=== PATIENT | male | born 1985 | race African-American/Black ===

== ENCOUNTER 2017-01-03 21:06 | Emergency (ER) | payer SELFPAY ==
[~2017-01-03] VITALS: Ht 182.9 cm; Wt 81.8 kg
[2017-01-03 21:11] VITALS: TEMP 98.6
[2017-01-03 21:40] LABS: HEMATOCRIT 40.3 % (42.0-52.0); MEAN CELL VOLUME 93 fl (80.0-100.0); MEAN CORPUSCULAR HEMOGLOBIN 32 pg (27.0-31.0); MEAN CORPUSCULAR HGB CONC 35 g/dl (33.0-37.0); MEAN PLATELET VOLUME 9.6 fl (7.4-10.4); PLATELET COUNT 269 K/mm3 (130-400); RED BLOOD COUNT 4.35 M/mm3 (4.20-5.60); REDCELL DISTRIBUTION WIDTH-CV 11.7 % (11.5-14.5); WHITE BLOOD COUNT 11.7 K/mm3 (4.8-10.8)
[2017-01-03 21:46] LABS: ADD PATHOLOGY DIFF REVIEW NO
[2017-01-03 21:52] LABS: ADJUSTED CALCIUM 9.5 mg/dL (8.4-10.2); ALBUMIN 4.3 gm/dL (3.5-5.0); BILIRUBIN,TOTAL 1.1 mg/dL (0.0-1.0); CALCIUM 9.7 mg/dL (8.4-10.2); CREATININE, serum 1.05 mg/dL (0.66-1.25); POTASSIUM 3.2 mmol/L (3.4-5.0); TOTAL PROTEIN 7.4 gm/dL (6.4-8.2)
[2017-01-03 21:57] LABS: BAND 2 % (0-10); EOSINOPHIL 3 % (0-4); NEUTROPHILS 39 % (42.0-75.2); PLATELET ESTIMATE NORMAL (NORMAL); TOTAL CELLS COUNTED 100
[2017-01-03 22:22] VITALS: BP 125/82; PULSE 93
== END 2017-01-03 22:43 | disposition home or self-care (01) ==
LOC: COL.ER 21:06
PROVIDERS: Emergency Medicine
DX: R00.2 Palpitations (principal); E87.6 Hypokalemia; R00.0 Tachycardia, unspecified

== ENCOUNTER 2018-04-05 10:15 | Emergency (ER) | payer SELFPAY ==
[~2018-04-05] VITALS: Ht 182.9 cm; Wt 78.6 kg
[2018-04-05 10:16] VITALS: BP 149/83; TEMP 98.7
[2018-04-05 10:27] LABS: COLLECTION METHOD CLEAN CATCH
[2018-04-05 10:43] LABS: MUCOUS Present /lpf; PH 6 (5-8); SQUAMOUS EPITHELIAL None Seen /hpf; URINE APPEARANCE Clear; URINE BACTERIA None Seen /hpf; URINE BILIRUBIN Negative (NEGATIVE); URINE BLOOD 3+ (NEGATIVE); URINE COLOR Yellow; URINE GLUCOSE Negative (NEGATIVE); URINE KETONE Negative (NEGATIVE); URINE LEUKOCYTE ESTERASE Negative (NEGATIVE); URINE NITRATE Negative (NEGATIVE); URINE PROTEIN(semi-quant) Negative (NEGATIVE); URINE RBC >50 /hpf; URINE UROBILINOGEN Negative (NEGATIVE)
[2018-04-05] MEDS ORDERED: CIPRO 500MG TA500 MG PO (11:23)
[2018-04-05 11:29] VITALS: PULSE 87
== END 2018-04-05 11:30 | disposition home or self-care (01) ==
LOC: COL.ER 10:15
PROVIDERS: Emergency Medicine
DX: R31.9 Hematuria, unspecified (principal); F17.210 Nicotine dependence, cigarettes, uncomplicated
CPT/HCPCS: J0696

== ENCOUNTER 2019-03-14 09:34 | Emergency (ER) | payer SELFPAY ==
[~2019-03-14] VITALS: Ht 185.4 cm; Wt 81.4 kg
[~2019-03-14 09:34] MED LIST: CIPRO 500MG TA500 MG PO
[2019-03-14 09:42] VITALS: BP 109/70; TEMP 99
[2019-03-14] MEDS ORDERED: CLEOCIN HCL300 MG PO (10:11)
[2019-03-14] MEDS ORDERED: NORCO 325 MG-51 TAB PO (10:11)
[2019-03-14 10:34] VITALS: PULSE 90
== END 2019-03-14 10:44 | disposition home or self-care (01) ==
LOC: COL.ER 09:34
DX: K04.7 Periapical abscess without sinus (principal); F17.210 Nicotine dependence, cigarettes, uncomplicated
CPT/HCPCS: J1885